=== PATIENT | female | born 1965 | race Two or more races ===

== ENCOUNTER 2020-10-08 13:38 | Emergency (ER) | payer OTHER ==
[~2020-10-08] VITALS: Ht 172.7 cm; Wt 70.0 kg
[2020-10-08] MEDS ORDERED: LIDOCAINE-MPF 1%, 5ML INFIL ONE (14:00)
[2020-10-08] MEDS ORDERED: LIDOCAINE-MPF 2% ,5ML ONE (14:10)
[2020-10-08] MEDS ORDERED: MORPHINE SULFATE 4 MG/ML, 1ML ONE (14:10)
[2020-10-08] MEDS ORDERED: ONDANSETRON 2MG/ML, 2ML ONE (14:10)
[2020-10-08] MEDS ORDERED: LIDOCAINE-MPF 1%, 2ML ONE (14:17)
[2020-10-08] MEDS ORDERED: MORPHINE SULFATE 4 MG/ML, 1ML IVPush ONE (14:30)
[2020-10-08] MEDS ORDERED: ONDANSETRON 2MG/ML, 2ML IVPush ONE (14:30)
[2020-10-08] MEDS ORDERED: LIDOCAINE-MPF 1%, 5ML ONE ×2 (14:31→14:51)
--- NOTE | 2020-10-08 14:39 | NUR ---
ERMD AT BEDSIDE FOR PROCEDURE.
[2020-10-08] MEDS ORDERED: LIDOCAINE 1%, 10ML INFIL ONE (15:00)
[2020-10-08] MEDS ORDERED: DIPH,PERTUSS(ACELL),TET VAC/PF 0.5 ML IM-VACC ONE ×2 (15:00→15:11)
[2020-10-08] MEDS ORDERED: BUPIVACAINE 0.25% ONE (15:26)
[2020-10-08] MEDS ORDERED: NEOSPORIN OINT. PKT 1 PACKET ONE (16:36)
[2020-10-08 16:55] VITALS: BP 99/65
--- NOTE | 2020-10-08 17:08 | NUR ---
PT REC'VD DISCHARGE INSTRUCTIONS AND EDUCATION. PT AND SIGNIFICANT OTHER HAD NO FURTHER QUESTIONS. PT REC'VD CRUTCH INSTRUCTIONS FROM TECH.
== END 2020-10-08 17:49 | disposition home or self-care (01) ==
LOC: ED 17:00
DX: S81.811A Laceration without foreign body, right lower leg, initial encounter (principal); W45.8XXA Other foreign body or object entering through skin, initial encounter; Y93.89 Activity, other specified; Y92.098 Other place in other non-institutional residence as the place of occurrence of the external cause; Y99.8 Other external cause status
CPT/HCPCS: 12034; 73590; 90471; 90715; 96374; 96375; 99284; J2270; J2405